=== PATIENT | male | born 1950 | race Caucasian/White ===

== ENCOUNTER 2017-02-04 21:49 | Inpatient (IN) | payer BC ==
[~2017-02-04] VITALS: Ht 165.1 cm; Wt 80.0 kg
[2017-02-04] MEDS ORDERED: NITROGLYCERIN OINT 1GM/INCH UDPKT TD STA (23:10)
[2017-02-04 23:38] LABS: BASOPHILS % 1.1 % (0.0-2.0); HEMOGLOBIN. 14.6 g/dL (14.0-18.0); LYMPHOCYTES % 18.5 % (20.0-50.0); MEAN CORPUSCULAR HEMOGLOBIN 31.9 pg (28.0-32.0); MEAN CORPUSCULAR VOLUME 89.8 fL (80.0-94.0); MEAN PLATELET VOLUME 8.2 fl (7.4-10.4); MONOCYTES % 9.4 % (2.0-8.0); PLATELET 147 x1000/uL (130-400); RED BLOOD CELL COUNT 4.57 mill/uL (4.7-6.1)
[2017-02-04 23:47] LABS: CARBON DIOXIDE 24 mEq/L (21-32); CHLORIDE 92 mEq/L (98-107); TROPONIN I 0.02 ng/mL (0.00-0.04)
[2017-02-05] VITALS (11 sets, daily range): BP systolic 106–153; BP diastolic 57–85
[2017-02-05] MEDS ORDERED: SODIUM CHLORIDE 0.9% 1,000 ML IV SCH ×2 (00:14→10:47)
[2017-02-05] MEDS ORDERED: HYDROCODONE/ACETAMINOPHEN 5/325MG TABLET PO PRN (11:00)
[2017-02-05] MEDS ORDERED: MORPHINE SULFATE 2 MG/ML CPJ (NOT FOR IM USE) IV PRN (11:00)
[2017-02-05] MEDS ORDERED: ACETAMINOPHEN 325MG TABLET PO PRN (11:00)
[2017-02-05] MEDS ORDERED: GUAIFENESIN 200MG/10ML SUGAR FREE UDC PO PRN (11:00)
[2017-02-05] MEDS ORDERED: IPRATROPIUM/ALBUTEROL 0.5-3(2.5)MG/3ML NEB INH PRN (11:00)
[2017-02-05] MEDS ORDERED: CLONIDINE 0.1MG TABLET PO PRN (11:00)
[2017-02-05] MEDS ORDERED: DOCUSATE SODIUM 100MG CAPSULE PO PRN (11:00)
[2017-02-05] MEDS ORDERED: ONDANSETRON HCL 4MG/2ML VIAL IV PRN (11:00)
[2017-02-05] MEDS ORDERED: REGADENOSON 0.4 MG/5 ML IV ONE ×2 (11:15→12:01)
[2017-02-05] MEDS ORDERED: NITROGLYCERIN 0.4MG TABLET SL SL ONE (12:30)
[2017-02-05] MEDS: ENOXAPARIN 40MG/0.4ML SYR SUBCUT SCH (12:47)
[2017-02-05] MEDS: ASPIRIN 81MG EC TABLET PO SCH (12:48)
[2017-02-05] MEDS: AMLODIPINE 5MG TABLET PO SCH (12:52)
[2017-02-05] MEDS: NITROGLYCERIN OINT 1GM/INCH UDPKT TD SCH ×3 (12:52→22:38)
[2017-02-05] MEDS ORDERED: SODIUM CHLORIDE 0.45% 1,000 ML IV SCH ×2 (14:00→16:30)
[2017-02-05] MEDS ORDERED: HEPARIN SODIUM 1,000 UNIT/1ML VIAL IV ONE (14:12)
[2017-02-05] MEDS ORDERED: NITROGLYCERIN 50MCG/ML 10ML VIAL (CATH LAB) IV ONE (14:12)
[2017-02-05] MEDS ORDERED: NICARDIPINE 100MCG/ML 10ML VIAL (CATH LAB) IV ONE (14:12)
[2017-02-05] MEDS ORDERED: FENTANYL CITRATE/PF 50MCG/ML 2ML VIAL ONE ×2 (14:29→16:04)
[2017-02-05] MEDS ORDERED: MIDAZOLAM HCL 2 MG/2 ML VIAL ONE ×3 (14:29→16:04)
[2017-02-05] MEDS ORDERED: IODIXANOL 320MG/ML 100 ML BOTTLE IV ONE ×2 (14:30→15:43)
[2017-02-05] MEDS ORDERED: LIDOCAINE HCL 1% 20ML VIAL (Pyxis) INJ ONE (14:30)
[2017-02-05] MEDS ORDERED: IOVERSOL 240MG/ML 100ML BOTTLE IV ONE (15:33)
[2017-02-05] MEDS ORDERED: LABETALOL HCL 5MG/ML VIAL 20ML IV ONE (16:02)
[2017-02-05] MEDS ORDERED: CLOPIDOGREL 75MG TABLET ONE (16:18)
[2017-02-05] MEDS ORDERED: ASPIRIN 325MG TABLET ONE (16:19)
[2017-02-05] MEDS ORDERED: ATROPINE SULFATE 1MG/10ML SYR IV PRN (16:30)
[2017-02-05] MEDS ORDERED: CLOPIDOGREL 75MG TABLET PO ONE (16:30)
[2017-02-05] MEDS ORDERED: MORPHINE SULFATE 10 MG/ML CPJ IV PRN (20:00)
[2017-02-05] MEDS: ATENOLOL 25MG TABLET PO SCH (20:28)
[2017-02-05 21:09] LABS: CREATINE KINASE MB FRACTION 5.6 ng/mL (0.5-3.6)
[2017-02-05 21:14] LABS: TROPONIN I 1.5 ng/mL (0.00-0.04)
[2017-02-06] VITALS (15 sets, daily range): BP systolic 108–141; BP diastolic 51–89
[2017-02-06] MEDS: NITROGLYCERIN OINT 1GM/INCH UDPKT TD SCH ×3 (05:46→22:10)
[2017-02-06 06:05] LABS: BASOPHILS % 0.8 % (0.0-2.0); EOSINOPHILS % 2.3 % (0.0-5.0); HEMOGLOBIN. 12.6 g/dL (14.0-18.0); LYMPHOCYTES % 18.8 % (20.0-50.0); MEAN CORPUSCULAR VOLUME 91.2 fL (80.0-94.0); MEAN PLATELET VOLUME 8.1 fl (7.4-10.4); MONOCYTES % 10.1 % (2.0-8.0); PLATELET 143 x1000/uL (130-400); RED BLOOD CELL COUNT 4.06 mill/uL (4.7-6.1)
[2017-02-06 06:24] LABS: CARBON DIOXIDE 25 mEq/L (21-32); CHLORIDE 101 mEq/L (98-107); CREATINE KINASE 60 IU/L (39-308); CREATINE KINASE MB FRACTION 4.6 ng/mL (0.5-3.6); HDL CHOLESTEROL 54 mg/dL (40-59); LDL CHOLESTEROL 131 mg/dL (5-100)
[2017-02-06] MEDS: ASPIRIN 81MG EC TABLET PO SCH ×2 (09:16→17:12)
[2017-02-06] MEDS: CLOPIDOGREL 75MG TABLET PO SCH (09:16)
[2017-02-06] MEDS: AMLODIPINE 5MG TABLET PO SCH (09:18)
[2017-02-06] MEDS: ATENOLOL 25MG TABLET PO SCH ×2 (09:18→20:01)
[2017-02-06] MEDS: ENOXAPARIN 40MG/0.4ML SYR SUBCUT SCH (11:00)
[2017-02-07] VITALS (10 sets, daily range): BP systolic 125–145; BP diastolic 61–83
[2017-02-07] MEDS: NITROGLYCERIN OINT 1GM/INCH UDPKT TD SCH (07:04)
[2017-02-07] MEDS: AMLODIPINE 5MG TABLET PO SCH (08:08)
[2017-02-07] MEDS: ATENOLOL 25MG TABLET PO SCH (08:09)
[2017-02-07] MEDS: CLOPIDOGREL 75MG TABLET PO SCH (08:09)
[2017-02-07] MEDS: ASPIRIN 81MG EC TABLET PO SCH (08:09)
[2017-02-07] MEDS: ENOXAPARIN 40MG/0.4ML SYR SUBCUT SCH (11:00)
== END 2017-02-07 12:25 | disposition home or self-care (01) | DRG 247 ==
LOC: ER 22:09 → EDBEDREQ 02-05 00:34 → ENRESERV 02-05 08:58 → 7WST 02-05 09:24 → 3WST 02-05 16:57
PROVIDERS: ADMIT Hospitalist; ATTEND Hospitalist
PROC: 027034Z Dilation of Coronary Artery, One Artery with Drug-eluting Intraluminal Device, Percutaneous Approach (ICD-10-PCS; principal; 2017-02-05)
PROC: 4A023N7 Measurement of Cardiac Sampling and Pressure, Left Heart, Percutaneous Approach (ICD-10-PCS; 2017-02-05)
PROC: B2151ZZ Fluoroscopy of Left Heart using Low Osmolar Contrast (ICD-10-PCS; 2017-02-05)
PROC: B2111ZZ Fluoroscopy of Multiple Coronary Arteries using Low Osmolar Contrast (ICD-10-PCS; 2017-02-05)
DX: I21.4 Non-ST elevation (NSTEMI) myocardial infarction (principal); I11.9 Hypertensive heart disease without heart failure; E87.1 Hypo-osmolality and hyponatremia; I25.110 Atherosclerotic heart disease of native coronary artery with unstable angina pectoris; E78.00 Pure hypercholesterolemia, unspecified; E78.5 Hyperlipidemia, unspecified; F17.200 Nicotine dependence, unspecified, uncomplicated; Z80.0 Family history of malignant neoplasm of digestive organs; Z82.49 Family history of ischemic heart disease and other diseases of the circulatory system; I25.2 Old myocardial infarction; Z86.73 Personal history of transient ischemic attack (TIA), and cerebral infarction without residual deficits; Z93.3 Colostomy status
CPT/HCPCS: 36415; 71010; 78452; 80053; 80061; 82550; 82553; 83690; 84443; 84484; 85025; 85347; 92928; 93005; 93017; 93306; 93458; 93970; 96360; 99285; A9500; C1725; C1769; C1887; C1893; J1644; J1650; J2250; J2785; J3010; J3490; J7030; Q9967

== ENCOUNTER 2018-10-11 17:41 | Inpatient (IN) | payer OTHER, MEDICARE ==
[~2018-10-11] VITALS: Ht 162.6 cm; Wt 79.8 kg
[~2018-10-11 17:41] MED LIST: AMLO10TA80 PO; ASPI-1393 PO; ATEN50TA PO; CLOP75TA33 PO; LOSA50TA41 PO
[2018-10-11] MEDS ORDERED: SODIUM CHLORIDE 0.9% 1,000 ML IV ONE (21:45)
[2018-10-11] MEDS ORDERED: PANTOPRAZOLE SODIUM 40 MG/VIAL IV STA (21:45)
[2018-10-11] MEDS ORDERED: ONDANSETRON HCL 4MG/2ML INJ IV STA (21:45)
[2018-10-11 22:22] LABS: EOSINOPHILS % 2.1 % (0.0-5.0); HEMATOCRIT. 35.4 % (42.0-52.0); LYMPHOCYTES % 17.6 % (20.0-50.0); MEAN CORPUSCULAR HEMOGLOBIN 30.5 pg (28.0-32.0); MEAN CORPUSCULAR VOLUME 90.1 fL (80.0-94.0); MEAN PLATELET VOLUME 8.1 fl (7.4-10.4); MONOCYTES % 9.7 % (2.0-8.0); NEUTROPHILS % 68.6 % (40.0-76.0); PLATELET 141 x1000/uL (130-400); RED BLOOD CELL COUNT 3.93 mill/uL (4.7-6.1); RED CELL DISTRIBUTION WIDTH 13.1 % (11.6-14.6)
[2018-10-11 22:27] LABS: CHLORIDE 95 mEq/L (98-107)
[2018-10-11 22:30] LABS: PROTHROMBIN TIME 10.3 sec (9.6-11.0)
[2018-10-11 22:31] LABS: ETHANOL BLOOD 117 mg/dL
[2018-10-12] VITALS (7 sets, daily range): BP systolic 110–140; BP diastolic 52–57
[2018-10-12 00:16] LABS: CLARITY URINE CLEAR (CLEAR); COLOR URINE YELLOW (YELLOW); KETONES URINE NEGATIVE (NEGATIVE); LEUKOCYTE ESTERASE URINE NEGATIVE (NEGATIVE); NITRITE URINE NEGATIVE (NEGATIVE); OCCULT BLOOD URINE 1+ (NEGATIVE); PROTEIN URINE 2+ (NEGATIVE); SPECIFIC GRAVITY URINE 1.012 (1.005-1.030); UROBILINOGEN URINE 0.2 E.U./dL (0.2-1.0)
[2018-10-12 00:26] LABS: *AMPHETAMINES SCREEN URINE NEGATIVE (NEGATIVE); *BARBITURATES SCREEN URINE NEGATIVE (NEGATIVE)
[2018-10-12 00:27] LABS: *BENZODIAZEPINES SCREEN URINE NEGATIVE (NEGATIVE); *COCAINE SCREEN URINE NEGATIVE (NEGATIVE); CANNABINOID URINE SCREEN NEGATIVE (NEGATIVE); METHADONE URINE SCREEN NEGATIVE (NEGATIVE); OPIATES URINE SCREEN NEGATIVE (NEGATIVE); PHENCYCLIDINE URINE SCREEN NEGATIVE (NEGATIVE)
[2018-10-12] MEDS ORDERED: MORPHINE SULFATE 2 MG/ML CPJ (NOT FOR IM USE) IV PRN (02:30)
[2018-10-12] MEDS: PANTOPRAZOLE 40MG DR TABLET PO SCH ×2 (06:18→17:14)
[2018-10-12 06:57] LABS: HEMATOCRIT 30.8 % (42.0-52.0); HEMOGLOBIN 10.5 g/dL (14.0-18.0); MEAN CORPUSCULAR HEMOGLOBIN 30.6 pg (28.0-32.0); MEAN CORPUSCULAR VOLUME 89.8 fL (80.0-94.0); PLATELET 117 x1000/uL (130-400); RED BLOOD CELL COUNT 3.43 mill/uL (4.7-6.1); RED CELL DISTRIBUTION WIDTH 13.2 % (11.6-14.6)
[2018-10-12] MEDS: LOSARTAN POTASSIUM 50 MG TABLET PO SCH (08:33)
[2018-10-12] MEDS: ATENOLOL 50 MG TABLET PO SCH ×2 (08:33→21:00)
[2018-10-12] MEDS: AMLODIPINE 10MG TABLET PO SCH (08:34)
[2018-10-12] MEDS: NEOMY SULF/BACITRAC ZN/POLY OINT 28GM TOP SCH ×2 (15:10→22:00)
[2018-10-12] MEDS ORDERED: ACETAMINOPHEN 325MG TABLET PO PRN (17:15)
[2018-10-12] MEDS ORDERED: ONDANSETRON HCL 4MG/2ML INJ IV PRN (17:15)
[2018-10-13] VITALS: BP 113/52
[2018-10-13 05:45] LABS: BASOPHILS % 1.3 % (0.0-2.0); EOSINOPHILS % 2.1 % (0.0-5.0); HEMATOCRIT. 31.2 % (42.0-52.0); HEMOGLOBIN. 10.5 g/dL (14.0-18.0); LYMPHOCYTES % 15.6 % (20.0-50.0); MEAN CORPUSCULAR HEMOGLOBIN 30.3 pg (28.0-32.0); MEAN CORPUSCULAR VOLUME 90.1 fL (80.0-94.0); MEAN PLATELET VOLUME 8.6 fl (7.4-10.4); MONOCYTES % 11.1 % (2.0-8.0); NEUTROPHILS % 69.9 % (40.0-76.0); PLATELET 99 x1000/uL (130-400); RED BLOOD CELL COUNT 3.47 mill/uL (4.7-6.1); RED CELL DISTRIBUTION WIDTH 13.1 % (11.6-14.6)
[2018-10-13 05:52] LABS: CHLORIDE 96 mEq/L (98-107)
[2018-10-13] MEDS: NEOMY SULF/BACITRAC ZN/POLY OINT 28GM TOP SCH (06:00)
[2018-10-13] MEDS: PANTOPRAZOLE 40MG DR TABLET PO SCH (06:09)
[2018-10-13 08:15] VITALS: BP 100/50
[2018-10-13] MEDS: LOSARTAN POTASSIUM 50 MG TABLET PO SCH (08:15)
[2018-10-13] MEDS: ATENOLOL 50 MG TABLET PO SCH (08:16)
[2018-10-13] MEDS: AMLODIPINE 10MG TABLET PO SCH (08:16)
[2018-10-13] MEDS ORDERED: DEXT 5% WATER + KCL 20MEQ/L 1,000 ML IV SCH (09:45)
[2018-10-13] MEDS ORDERED: ZOLPIDEM TARTRATE 5MG TABLET PO PRN (09:45)
[2018-10-13] MEDS ORDERED: DOCUSATE SODIUM 250MG CAPSULE PO SCH (11:00)
[2018-10-13 12:00] VITALS: BP 110/52
[2018-10-13 14:38] VITALS: BP 110/52
[2018-10-13] MEDS ORDERED: ATENOLOL 25MG TABLET PO SCH (21:00)
[2018-10-14] MEDS ORDERED: AMLODIPINE 2.5MG TABLET PO SCH (09:00)
[2018-10-14] MEDS ORDERED: LOSARTAN POTASSIUM 25 MG TABLET PO SCH (09:00)
== END 2018-10-13 18:00 | disposition home or self-care (01) | DRG 377 ==
LOC: ER 17:41 → 8WST 23:15 → EDBEDREQTM 23:19 → EDBEDREQ 23:19 → ENRESERV 23:43 → 8WST 10-13 12:38
PROVIDERS: ADMIT Internal Medicine; ATTEND Internal Medicine
DX: K92.2 Gastrointestinal hemorrhage, unspecified (principal); N17.0 Acute kidney failure with tubular necrosis; D64.9 Anemia, unspecified; E78.5 Hyperlipidemia, unspecified; E87.8 Other disorders of electrolyte and fluid balance, not elsewhere classified; F10.129 Alcohol abuse with intoxication, unspecified; K59.00 Constipation, unspecified; Y90.5 Blood alcohol level of 100-119 mg/100 ml; G47.00 Insomnia, unspecified; I10 Essential (primary) hypertension; I25.10 Atherosclerotic heart disease of native coronary artery without angina pectoris; Z95.5 Presence of coronary angioplasty implant and graft; Z93.3 Colostomy status; Z87.891 Personal history of nicotine dependence; Z79.02 Long term (current) use of antithrombotics/antiplatelets; Z79.82 Long term (current) use of aspirin; Z82.49 Family history of ischemic heart disease and other diseases of the circulatory system; Z90.49 Acquired absence of other specified parts of digestive tract
CPT/HCPCS: 36415; 74176; 76700; 80048; 80305; 80320; 82270; 83880; 84484; 85027; 86850; 86900; 93005; 96374; 96375; 99285; C9113; J2405; J7030; J7060; G0480